=== PATIENT | female | born 2005 | race Caucasian/White ===

== ENCOUNTER 2023-04-15 10:34 | Emergency (ER) | payer OTHER, SELFPAY ==
[2023-04-15 10:38] VITALS: BP 138/93; PULSE 74; RESP 22; TEMP 36.8; O2SAT 98; BMI 36.0
--- NOTE | 2023-04-15 11:19 | ED.DENTAL ---
HPI - Dental/Oral General Date Seen: 04/15/23 Chief complaint: Dental/Oral/Mouth Injury/Pain Stated complaint: Back L tooth pain Time Seen by Provider: 04/15/23 10:54 Source: patient Mode of arrival: ambulatory Limitations: no limitations History of Present Illness HPI Narrative: Patient is a 17-year-old female presenting to the emergency department for tooth pain. She states she has been having tooth pain for few months now but it has been tolerable. Got acutely worse this morning and ibuprofen was not helping. She states she is at several dental appointments scheduled by her mother and then canceled. She is not sure why they were canceled. 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 She is clean now she states. Denies sore throat, difficulty swallowing, difficulty breathing, fevers, chills. No other concerns noted at this time. has been using ibuprofen without improvement today. Location: Tooth # (14 and 19) Related Data Previous Rx's Medication Instructions Recorded amoxicillin 875 mg tablet 875 mg PO BID #10 tabs 04/15/23 ketorolac 10 mg tablet 10 mg PO TID PRN pain 5 days #15 04/15/23 tabs Allergies Allergy/AdvReac Type Severity Reaction Status Date / Time No Known Drug Allergies Allergy Verified 04/15/23 10:43 Review of Systems Narrative: Pertinent systems reviewed and negative unless stated in [facility] [place] History (Updated 04/15/23 @ 11:56 by Alden Cook DO) PTSD (post-traumatic stress disorder) ?F43.10 - Post-traumatic stress disorder, unspecified (ICD-10) Anxiety ?F41.9 - Anxiety disorder, unspecified (ICD-10) Depression ?F32.A - Depression, unspecified (ICD-10) Social History Smoking Status: Never smoker Do you use any of these nicotine containing products: None How often do you have a drink containing alcohol: 4 or more times a week How many standard drinks containing alcohol do you have on a typical day: 5 or 6 AUDIT-C Alcohol total score: 6 Non-prescribed substance use: marijuana (any form) Exam Narrative: Exam Narrative: Const: Well-nourished, Well-developed, in mild distress Eyes: PERRL, no conjunctival injection, and symmetrical lids HENT: Atraumatic external nose and ears. Moist mucous membranes. Relatively okay dentition but a couple obvious cavities noted at tooth 14 and 19 Neck: Symmetric, trachea midline, No thyromegaly. MSK:Extremities w/o deformity, Normal Active ROM Skin: Warm, Dry. No rashes or lesions. Neuro: Normal Muscle tone, No focal neurological deficits. Psych: Awake, Alert, & Oriented x3. Appropriate mood and affect. Const: Vital Signs, click to edit/add: Vital Signs - 24 hr 04/15/23 10:38 Temperature 98.3 F Pulse Rate [Pulse Oximeter] 74 Respiratory Rate 22 Blood Pressure [[facility]] 138/93 H Pulse Oximetry 98 Oxygen Delivery Me thod Room Air Course Vital Signs Vital signs: Initial Vital Signs Temperature 98.3 F 04/15/23 10:38 Temperature Source Temporal Artery Scan 04/15/23 10:38 Pulse Rate 74 04/15/23 10:38 Respiratory Rate 22 04/15/23 10:38 Blood Pressure 138/93 H 04/15/23 10:38 Blood Pressure Mean 108 H 04/15/23 10:38 Blood Pressure Position Sitting 04/15/23 10:38 Pulse Oximetry 98 04/15/23 10:38 Oxygen Delivery Method Room Air 04/15/23 10:38 Vital Signs Temperature 98.3 F 04/15/23 10:38 Pulse Rate 74 04/15/23 10:38 Respiratory Rate 04/15/23 10:38 Blood Pressure 138/93 H 04/15/23 10:38 Pulse Oximetry 98 04/15/23 10:38 Oxygen Delivery Method Room Air 04/15/23 10:38 Temperature 98.3 F 04/15/23 10:38 Pulse Rate 74 04/15/23 10:38 Respiratory Rate 04/15/23 10:38 Blood Pressure 138/93 H 04/15/23 10:38 Pulse Oximetry 98 04/15/23 10:38 Oxygen Delivery Method Room Air 04/15/23 10:38 Medications Administered Medications: Discontinued Medications Generic Name Dose Route Start Last Admin Trade Name Freq PRN Reason Stop Dose Admin Amoxicillin 500 mg 04/15/23 11:10 04/15/23 11:33 Amoxicillin 250 Mg Capsule PO 04/15/23 11:11 500 mg ONCE ONE Administration Ketorolac Tromethamine 30 mg 04/15/23 11:09 04/15/23 11:33 Ketorolac 30 Mg/Ml Inj IM 04/15/23 11:10 30 mg ONCE ONE Administration MDM - Dental/Oral MDM Narrative Medical decision making narrative: Patient is an 6 year female presenting for dental pain. He does have some mild erythema. No signs of abscess formation. No signs of neck space or oropharynx infection. She is otherwise doing well. With her history of meth abuse some hesitant to give her any narcotics so she was given a dose of Toradol and started on antibiotics. She is feeling better after this and will be discharged home on Toradol and amoxicillin. She is agreeable to this plan. I informed her to follow up with Dental as soon as possible. She states she is going to schedule appointment as soon as she can. Discharge Plan Discharge Clinical Impression: Dental caries Patient Disposition: Home, Self-Care Condition: Improved Instructions: Toothache (ED) Additional Instructions: Make sure to schedule appointment with a dentist as soon as you can. Take Tylenol for pain along with the prescribed Toradol. Use the amoxicillin as directed. Return to emergency department for new or worsening symptoms Prescriptions: New amoxicillin 875 mg tablet 875 mg PO BID Qty: 10 0RF ketorolac 10 mg tablet 10 mg PO TID PRN (Reason: pain) 5 Days Qty: 15 0RF Follow Up/Referrals: Wendi House MD [Primary Care Provider] - Stand Alone Forms: [employer] Info Instructions
[2023-04-15] MEDS: AMOXICILLIN 250 MG CAPSULE 500 MG PO (11:33)
[2023-04-15] MEDS: KETOROLAC 30 MG/ML inj IM (11:33)
== END 2023-04-15 12:06 | disposition home or self-care (01) ==
PROVIDERS: Emergency Provider Student in an Organized Health Care Education/Training Program; PCP Family Medicine
DX: K02.9 Dental caries, unspecified (principal)
CPT/HCPCS: 96372; 99282; 99283; A9270; J1885

== ENCOUNTER 2023-12-31 15:38 | Emergency (ER) | payer MEDICAID, SELFPAY ==
[2023-12-31 15:41] VITALS: BP 136/85; PULSE 84; RESP 16; TEMP 36.5; O2SAT 98; BMI 34.5
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
== END 2023-12-31 16:22 | disposition home or self-care (01) ==
LOC: ED 16:13
PROVIDERS: Emergency Provider Family Medicine; PCP Family Medicine
DX: T25.222A Burn of second degree of left foot, initial encounter (principal); X12.XXXA Contact with other hot fluids, initial encounter
CPT/HCPCS: 99283